=== PATIENT | female | born 1960 | race Caucasian/White ===

== ENCOUNTER 2017-05-14 18:48 | Emergency (ER) | payer MEDICARE, OTHER ==
[~2017-05-14] VITALS: Ht 157.5 cm; Wt 70.8 kg
[2017-05-14] MEDS ORDERED: VENTOLIN HFA18 GM INH (19:16)
== END 2017-05-14 20:50 | disposition home or self-care (01) ==
LOC: ED 18:48
DX: S86.911A Strain of unspecified muscle(s) and tendon(s) at lower leg level, right leg, initial encounter (principal); J45.909 Unspecified asthma, uncomplicated; Z90.710 Acquired absence of both cervix and uterus; Z90.49 Acquired absence of other specified parts of digestive tract; Z88.5 Allergy status to narcotic agent; Z79.899 Other long term (current) drug therapy; W19.XXXA Unspecified fall, initial encounter
CPT/HCPCS: 73590; 73610; 99283

== ENCOUNTER 2017-06-01 20:45 | Emergency (ER) | payer MEDICARE ==
[~2017-06-01] VITALS: Ht 157.5 cm; Wt 72.6 kg
[~2017-06-01 20:45] MED LIST: VENTOLIN HFA18 GM INH
[2017-06-01] MEDS ORDERED: ASPIRIN EC325 MG PO (20:57)
--- NOTE | 2017-06-03 19:14 | EKG ---
[facility] [address] [facility] [address] [place] [address] Signed Normal sinus rhythm Normal ECG No previous ECGs available Confirmed by CATALINA TANNER MD ([id number]) on 06/03/2017 7:14:44 PM Electronically Signed By: CATALINA TANNER MD 06/03/17 1914 PATIENT NAME: CAREN DUNBAR Electrocardiogram DATE OF : 62 PHYSICIAN: CATALINA TANNER MD REPORT #: [id number] REPORT IS CONFIDENTIAL AND NOT TO BE RELEASED WITHOUT AUTHORIZATION
== END 2017-06-01 23:09 | disposition home or self-care (01) ==
LOC: ED 20:45
DX: R07.89 Other chest pain (principal); J45.909 Unspecified asthma, uncomplicated; Z90.710 Acquired absence of both cervix and uterus; Z87.891 Personal history of nicotine dependence; Z90.49 Acquired absence of other specified parts of digestive tract; Z88.5 Allergy status to narcotic agent; Z79.899 Other long term (current) drug therapy
CPT/HCPCS: 71010; 80053; 82550; 82553; 83874; 84484; 85025; 93005; 93010; 99284